=== PATIENT | female | born 2000 ===

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

== ENCOUNTER 2021-04-11 13:39 | Outpatient (CLI) | payer OTHER | END 2021-04-11 13:41 | disposition home or self-care (01) | LOC: SONOGRAMA 13:39 | PROVIDERS: ATTEND Obstetrics & Gynecology Gynecology | DX: R10.2 Pelvic and perineal pain (principal) ==